=== PATIENT | female | born 1950 | race Caucasian/White ===

== ENCOUNTER 2016-03-15 09:21 | Emergency (ER) | payer OTHER ==
[~2016-03-15 09:21] MED LIST: ATEN25TA PO; CALCTAB66 PO; HYDR12.55 PO; IBUPPOW25 PO; NAPR500T2 PO; PREV30CA6 PO; [UNRECOGNIZED DRUG - CODE] TOP; [UNRECOGNIZED DRUG - OTHER] PO
[2016-03-15] MEDS ORDERED: ONDANSETRON 4 MG ORAL DISINTEGRATING TAB (S0181) As Ordered ONE (09:46)
[2016-03-15] MEDS ORDERED: MORPHINE 4 MG/ML 1ML SYRINGE As Ordered ONE (09:46)
--- NOTE | 2016-03-15 10:26 | REP ---
CT BRAIN WITHOUT CONTRAST: 03/15/2016 CLINICAL HISTORY: Trauma. No prior study. FINDINGS: Soft-tissue and bone windows show ventricles midline, symmetric and without dilatation or displacement. Basal ganglia is symmetric and normal. Andrade/white junction differentiation well maintained. Cortical stripe is preserved. There is no vascular territory infarct, hemorrhage, mass or mass effect. No extra-axial fluid collections. There is no atrophy. The brainstem was unremarkable. Cerebellum shows no atrophy. Basal cisterns are intact. Mastoids are well aerated. There is some minor mucosal thickening of bilateral ethmoids. That portion of sphenoid and frontal sinuses as well as the upper maxillary sinuses are clear. Skull base and calvarium show no fracture or focal lesion. IMPRESSION: 1. There is no hydrocephalous, small vessel white matter changes or mastoid abnormality. The sinuses show minor mucosal thickening of some of the ethmoids. 2. No fracture of the skull base or calvarium. 3. No intracranial hemorrhage, edema, mass, acute infarct or other finding. Signed by Jose Wiseman MD 03/15/2016 10:49 A
--- NOTE | 2016-03-15 10:45 | REP ---
Lumbar spine five views: Comparison is 04/08/2013. There is mild scoliosis convex left, possibly positional. There is grade 1 compression of the L1 vertebral body as a change from the prior study. The remainder of the vertebral body heights are normal. Vertebral interspacing alignment are normal. There is no spondylolysis or spondylolisthesis. 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 The facets are otherwise unremarkable. The pedicles and sacroiliac articulations are unremarkable. Impression: Grade 1 L1 vertebral body compression as an interval change. Otherwise, negative lumbar spine. Signed by Nacho Santos MD 03/15/2016 10:37 A
[2016-03-15] MEDS ORDERED: IBUPROFEN 600 MG TAB As Ordered ONE (11:27)
--- NOTE | 2016-03-15 12:14 | REP ---
CT LUMBAR SPINE WITHOUT CONTRAST: 03/15/2016 COMPARISON: X-ray 03/15/2016, 04/08/2013. CLINICAL HISTORY: L1 compression fracture. TECHNIQUE: Standard trauma protocol CT lumbar spine without contrast performed with coronal and sagittal reconstructions. FINDINGS: Sagittal images show grade 1 superior endplate compression of L1. The T12 vertebral body, lower half of T11 and then the L2 through S1 levels are all intact. Normal lumbar lordosis is maintained. The disc space height is maintained at all levels. Posterior elements show facet arthropathy at L5-S1, less at L4-5 and other levels but no spondylolysis or spondylolisthesis noted. Spinous processes and lamina intact. Transverse processes are intact. The lower thoracic ribs included are unremarkable. Small amount of paraspinal hematoma noted. This compression fracture is not present on the 04/08/2013 x-ray. The T11-12 level was intact. At T12-L1, there is no retropulsion of the superior endplate with the cross-sectional area of the canal ample. No spinal or foraminal stenosis. At L1-2, there is a mild broad-based disc bulge but no spinal or foraminal stenosis. At L2-3, there is minimal disc bulge without spinal or foraminal stenosis. At L3-4, there is minimal disc bulge without spinal or foraminal stenosis. At L4-5, there is some facet arthropathy and mild broad-based disc bulge with borderline central canal foramen adequate. At L5 -S1, minimal disc bulge abutting the S1 nerve roots. Cross-sectional area of the canal adequate. Foramina adequate. Sclerosis of the iliac and sacral margin of the SI joints on the left less on the right. IMPRESSION: 1. Superior endplate grade 1 compression of L1 appears to be acute, but without a retropulsed fragment. There is no central canal stenosis or foraminal encroachment at this level. 2. Disc bulges at multiple lower lumbar levels not causing any significant spinal or foraminal stenosis. 3. There is no other compression fracture and there is facet arthritis lower lumbar spine. Signed by Jose Wiseman MD 03/15/2016 04:43 P
--- NOTE | 2016-03-15 14:36 | EDDOCDS ---
Nurse's Notes [facility] Name: Anahi Benton Age: 65 yrs Sex: Female : 1950 Arrival Date: 03/15/2016 Time: 09:21 Bed 6 Private MD: Kristen Denson A Diagnosis: Fall (on) (from) unspecified stairs and steps-treadmill;Laceration without foreign body of scalp;Wedge compression fracture of first lumbar vertebra-Grade 1 Presentation: 03/15 09:25 Presenting complaint: EMS states: pt was walking on the treadmill this morning, while ead trying to remove extra layer of clothing fell off of treadmill landing on weight equipment. pt c/o lower back pain. abrasion to left arm. abrasion to back of head. Denies LOC. Adult Sepsis Screening: The patient does not have new or worsening altered mentation. Patient's respiratory rate is less than 22. Systolic blood pressure is greater than 100. Patient has a qSOFA score of 0- Negative Sepsis Screen. Suicide/Homicide risk assessment- the patient denies having any suicidal and/or homicidal ideations and does not present with any other emotional, behavioral or mental health complaints. Status: Patient is not a student support services director or dependent. Transition of care: patient was received from [facility] Physical [facility]. 09:25 Method Of Arrival: Ambulance ead 09:25 Acuity: GEOVANNY Level 4 ead Triage Assessment: 09:30 General: Appears in no apparent distress, well nourished, well groomed, Behavior is ead appropriate for age, cooperative. Pain: Location: left low back and right low back Pain currently is 8 out of 10 on a pain scale. HIV screening NA for this visit Offered previously. The patient is triaged at the bedside. See Assessment in Nurses Notes section of ED record. Neurological: Level of Consciousness is awake, alert, obeys commands, Oriented to person, place, time, Speech is normal, Facial symmetry appears normal, Denies dizziness, headache. Respiratory: Airway is patent Respiratory effort is even, unlabored. Derm: Skin is pink, warm & dry. abrasion to left arm. Musculoskeletal: Reports pain in left low back and right low back. Historical: - Allergies: no known allergies; - Home Meds: 1. omeprazole 20 mg Oral cpDR 1 cap once daily 2. hydrochlorothiazide 12.5 mg Oral tab 1 tab once daily 3. Calcium + Vitamin D Oral 600 mg twice a day - PMHx: GERD; Osteoporosis; Hypertension; Chronic Low Back Pain; - PSHx: Tonsillectomy; Cholecystectomy; Adenoidectomy; left foot - neuroma removal; - The history from nurses notes was reviewed: and elements of the historical information I have obtained differs from that reported to nursing. - Social history: No barriers to communication noted, The patient speaks fluent Iraqi, Speaks appropriately for age, Smoking status: Patient states was never smoker of tobacco. - : The pt / caregiver states he / she is not on anticoagulants. Home medication list is obtained from the patient. - Hospitalizations: : No recent hospitalization is reported. - Exposure Risk Screening:: None identified. - Immunization history:: All immunizations up-to-date. - Family history: Not pertinent. - Social history:: the patient is a non-smoker, the patient does not drink alcohol. Screenin:32 Screening information is obtained from the patient. Fall risk: No risks identified. ead Assistance ADL's: requires no assistance with activities of daily living. Abuse/DV Screen: The patient / caregiver reports he/she is: not in a situation that causes fear, pain or injury. Nutritional screening: No deficits noted. Advance Directives: Currently, there is a health care proxy, Orion Benton (). There is an active DNR order but there is no copy available at this time. There is no living will. There is an active Power of Forensic Computer Examiner, Orion Serenity (). home support is adequate. Assessment: 10:30 General: Appears in no apparent distress, comfortable, pt lying on stretcher, ead at bedside. . Respiratory: Airway is patent Respiratory effort is even, unlabored. Derm: Skin is pink, warm & dry. 11:15 General: pt reports no improvement of pain after morphine. requesting heat pad, pt ead provided with warm blanket to lower back. pt reports improvement with warm blankets. pt also requesting motrin for pain. provider made aware. . 11:31 General: Appears in no apparent distress, comfortable, Behavior is appropriate for age, ead cooperative. Pain: Location: right low back and left low back Pain currently is 6 out of 10 on a pain scale. Neurological: No deficits noted. Neurological: No deficits noted. Respiratory: Airway is patent Respiratory effort is even, unlabored. Musculoskeletal: Reports pain in right low back and left low back. 12:14 Adult Sepsis Screening: The patient does not have new or worsening altered mentation. ead Patient's respiratory rate is less than 22. Systolic blood pressure is greater than 100. Patient has a qSOFA score of 0- Negative Sepsis Screen. 13:13 General: Appears in no apparent distress, comfortable, Behavior is appropriate for age, ead cooperative. Neurological: Level of Consciousness is awake, alert, obeys commands, Oriented to person, place, time. Derm: Skin laceration to back of head. cleaned and left for inspection by Dr. Hartley. pt able to roll side to side in bed, reports improvement in lower back pain. Skin is pink, warm & dry. Musculoskeletal: Range of motion intact in all extremities. No deformity noted Swelling absent. 14:16 General: Appears in no apparent distress, comfortable, Behavior is appropriate for age, ead cooperative. Respiratory: Airway is patent Respiratory effort is even, unlabored. Derm: Skin is pink, warm & dry. Vital Signs: 09:44 BP 158 / 72; Pulse 65; Resp 18; Temp 98.0; Pulse Ox 99% on R/A; Weight 102.06 kg (R); nb2 Height 5 ft. 1 in. (154.94 cm) (R); Pain 8/10; 11:11 BP 105 / 53 (auto/); ead 11:13 Pulse 65; Resp 16; Pulse Ox 95% ; ead 12:07 Pulse 70; Pulse Ox 97% ; ead 12:08 BP 122 / 60 (auto/); ead 12:11 BP 118 / 57 (auto/); ead 12:12 Pulse Ox 96% ; ead 12:41 BP 116 / 56 (auto/); ead 12:45 Pulse 68; Resp 18; Pulse Ox 98% ; ead 13:06 Pulse Ox 96% ; ead 13:07 Resp 16; Pulse Ox 97% on R/A; ead 13:41 BP 153 / 73 (auto/); ead 14:11 BP 118 / 62 (auto/); ead 14:23 BP 118 / 62; Pulse 67; Resp 16; Temp 98.3; Pulse Ox 96% ; Pain 1/10; cmb 09:44 Body Mass Index 42.51 (102.06 kg, 154.94 cm) nb2 Vitals: 09:21 Log In Time N/A - ambulance arrival. ead ED Course: 09:23 Patient visited by Alla Kent, Church History Teacher. lbd 09:23 Kristen Denson is Private Physician. lbd 09:23 Martina Fox RN is Primary Nurse. lbd 09:23 Mercy RitterRN is Primary Nurse. lbd 09:23 Patient moved to Waiting lbd 09:23 Patient moved to 6 lbd 09:29 Triage Initiated ead 09:32 The patient / caregiver is instructed regarding the plan of care and ED course. Patient ead has correct armband on for positive identification. Placed in gown. Bed in low position. Call light in reach. Side rails up X2. Adult w/ patient. Pulse ox on. NIBP on. 09:35 Carlos Hartley MD is Attending Physician. pc 09:42 Patient visited by Carlos Hartley MD. pc 09:44 Patient visited by Audrey Mcguire. nb2 10:41 CT Head Without Contrast Returned. EDMS 10:43 Patient visited by Mercy Ritter RN. ead 11:16 Patient visited by Mercy Ritter RN. ead 11:30 Patient visited by Mercy Ritter RN. ead 11:33 [facility] Payment Agreement was scanned into [employer] and attached to record. mm15 11:33 Spine. Lumbosacral, Complete Returned. EDMS 12:14 Patient visited by Mercy Ritter RN. ead 12:27 CT Spine, Lumbar W/o Contrast Returned. EDMS 12:36 Primary Nurse role handed off by Martina Fox RN [facility] 13:13 Patient visited by Mercy Ritter RN. ead 14:15 Patient visited by Mercy Ritter RN. ead 14:17 Kristen Denson MD is Referral Physician. pc 14:18 Ronald Marmolejo is Referral Physician. pc 14:24 Patient visited by Tamela Porter. cmb 14:35 No IV's were initiated during this patient's visit. No procedures done that require ead assistance. Administered Medications: 09:51 Drug: morphine 4 mg [morphine 4 mg/mL intravenous cartridge (1 mL)] Route: Sub-Q; Site: mcp left upper arm; 10:45 Follow up: Response: Confirmed pt not driving.; No Adverse Reaction; Pain is unchanged, ead physician notified 09:51 Drug: Ondansetron ODT 4 mg [ondansetron 4 mg disintegrating tablet (1 tabs)] Route: PO; [facility] 10:45 Follow up: Response: Nausea is resolved; No Adverse Reaction ead 11:30 Drug: Ibuprofen 600 mg [ibuprofen 600 mg tablet (1 tabs)] Route: PO; ead Order Results: Radiology Order: CT Head Without Contrast Test: CT Head Without Contrast REASON FOR EXAMINATION: Trauma; CT BRAIN WITHOUT CONTRAST: 03/15/2016; ; CLINICAL HISTORY: Trauma.; ; No prior study.; ; FINDINGS: Soft-tissue and bone windows show ventricles midline, symmetric and; without dilatation or displacement. Basal ganglia is symmetric and normal.; Andrade/white junction differentiation well maintained. Cortical stripe is; preserved. There is no vascular territory infarct, hemorrhage, mass or mass; effect. No extra-axial fluid collections. There is no atrophy. The brainstem; was unremarkable. Cerebellum shows no atrophy. Basal cisterns are intact.; Mastoids are well aerated. There is some minor mucosal thickening of bilateral; ethmoids. That portion of sphenoid and frontal sinuses as well as the upper; maxillary sinuses are clear. Skull base and calvarium show no fracture or focal; lesion.; ; IMPRESSION:; ; 1. There is no hydrocephalous, small vessel white matter changes or mastoid; abnormality. The sinuses show minor mucosal thickening of some of the ethmoids.; ; 2. No fracture of the skull base or calvarium.; ; 3. No intracranial hemorrhage, edema, mass, acute infarct or other finding.; ; ; Signed by; Jose Wiseman MD 03/15/2016 10:49 A; Radiology Order: Spine. Lumbosacral, Complete Test: Spine. Lumbosacral, Complete REASON FOR EXAMINATION: Trauma; Lumbar spine five views:; ; Comparison is 04/08/2013.; ; There is mild scoliosis convex left, possibly positional.; ; There is grade 1 compression of the L1 vertebral body as a change from the prior; study. 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 The facets are otherwise; unremarkable.; ; The pedicles and sacroiliac articulations are unremarkable.; ; Impression: Grade 1 L1 vertebral body compression as an interval change.; ; Otherwise, negative lumbar spine.; ; ; Signed by; Nacho Santos MD 03/15/2016 10:37 A; Radiology Order: CT Spine, Lumbar W/o Contrast Test: CT Spine, Lumbar W/o Contrast REASON FOR EXAMINATION: L1 commpression fracture; CT LUMBAR SPINE WITHOUT CONTRAST: 03/15/2016; ; COMPARISON: X-ray 03/15/2016, 04/08/2013.; ; CLINICAL HISTORY: L1 compression fracture.; ; TECHNIQUE: Standard trauma protocol CT lumbar spine without contrast performed; with coronal and sagittal reconstructions.; ; FINDINGS: Sagittal images show grade 1 superior endplate compression of L1. The; T12 vertebral body, lower half of T11 and then the L2 through S1 levels are all; intact. Normal lumbar lordosis is maintained. The disc space height is; maintained at all levels. Posterior elements show facet arthropathy at L5-S1,; less at L4-5 and other levels but no spondylolysis or spondylolisthesis noted.; Spinous processes and lamina intact. Transverse processes are intact. The lower; thoracic ribs included are unremarkable. Small amount of paraspinal hematoma; noted. This compression fracture is not present on the 04/08/2013 x-ray. The; T11-12 level was intact. At T12-L1, there is no retropulsion of the superior; endplate with the cross-sectional area of the canal ample. No spinal or foraminal; stenosis.; ; At L1-2, there is a mild broad-based disc bulge but no spinal or foraminal; stenosis.; ; At L2-3, there is minimal disc bulge without spinal or foraminal stenosis.; ; At L3-4, there is minimal disc bulge without spinal or foraminal stenosis.; ; At L4-5, there is some facet arthropathy and mild broad-based disc bulge with; borderline central canal foramen adequate.; ; At L5 -S1, minimal disc bulge abutting the S1 nerve roots. Cross-sectional area; of the canal adequate. Foramina adequate. Sclerosis of the iliac and sacral; margin of the SI joints on the left less on the right.; ; IMPRESSION:; 1. Superior endplate grade 1 compression of L1 appears to be acute, but without; a retropulsed fragment. There is no central canal stenosis or foraminal; encroachment at this level.; ; 2. Disc bulges at multiple lower lumbar levels not causing any significant; spinal or foraminal stenosis.; ; 3. There is no other compression fracture and there is facet arthritis lower; lumbar spine.; ; ; ; ; ; ; ; ; Unreviewed; Outcome: 14:18 Discharge ordered by Provider. pc 14:34 Discharge Assessment: Patient awake and alert. obeys commands, Oriented to person, ead place and time. patient administered narcotics - yes. Pt provided with safe discharge. The following High Risk Discharge criteria are identified: None. Discharged to home ambulatory, with significant other. Condition: improved. Discharge instructions given to patient, significant other, Instructed on discharge instructions, follow up and referral plans. medication usage, no driving heavy equipment, no drinking with medication, Demonstrated understanding of instructions, medications, Pt was receptive of discharge instructions/ teaching. Prescriptions given X 2. CT Study completed. Property sent home with patient. 14:35 Patient left the ED. ead Signatures: Dispatcher [employer] EDMS Carlos Hartley MD MD pc Daly, Linda, Church History Teacher Unit lbd Anabelle Vasques RN RN mcp [place], Chelsea cmb McGrath, Marlynn [id number] Mercy Ritter RN RN ead Baart, Nicole nb2 MTDD
--- NOTE | 2016-03-15 14:36 | EDDOCDS ---
Physician Documentation [facility] Name: Anahi Benton Age: 65 yrs Sex: Female : 1950 Arrival Date: 03/15/2016 Time: 09:21 Bed 6 Private MD: Kristen Denson A Disposition: 03/15 14:16 Critical Care: Critical care not applicable. pc 14:21 A printed prescription was provided to the patient due to temporary technical issues pc which prevented electronic transmission. Disposition: 03/15/16 14:18 Discharged to Home/Self Care. Impression: Fall (on) (from) unspecified stairs and steps - treadmill, Laceration without foreign body of scalp, Wedge compression fracture of first lumbar vertebra - Grade 1. - Condition is Stable. - Discharge Instructions: Back, Compression Fracture, Laceration Care, Adult. - Prescriptions for Ibuprofen 800 mg Oral Tablet - take 1 tablet by ORAL route every 8 hours As needed take with food; 30 tablet. Tramadol 50 mg Oral Tablet - take 1 tablet by ORAL route 4 times per day As needed MDD: 4 tabs; 20 tablet. - Medication Reconciliation, Local Pharmacy Hours form. - Follow up: Kristen Denson MD; When: 1 week; Reason: Staple/Suture removal. Follow up: Ronald Marmolejo; When: Call to arrange an appointment; Reason: Recheck today's complaints, To establish care. - Problem is new. - Symptoms have improved. HPI: 10:05 This 65 yrs old Female presents to ER via Ambulance with complaints of Fall pc Injury. 10:05 The history is obtained from the patient. She attempted to take her sweatshirt off pc while walking on the treadmill and was propelled off the machine, falling backwards. She struck her head on a piece of equipment, sustaining a laceration to her occiput. She did not have any LOC, neck pain or UE neurological symptoms. She says she arched her back while falling and complains of increased pain over her usual chronic low back pain. She denies any numbness or tingling or weakness in her LEs. No other injuries. At their worst, the symptoms were a 8 out of 10. In the emergency department, the symptoms are unchanged. The patient has been recently seen by a paint spray tender. Historical: - Allergies: no known allergies; - Home Meds: 1. omeprazole 20 mg Oral cpDR 1 cap once daily 2. hydrochlorothiazide 12.5 mg Oral tab 1 tab once daily 3. Calcium + Vitamin D Oral 600 mg twice a day - PMHx: GERD; Osteoporosis; Hypertension; Chronic Low Back Pain; - PSHx: Tonsillectomy; Cholecystectomy; Adenoidectomy; left foot - neuroma removal; - The history from nurses notes was reviewed: and elements of the historical information I have obtained differs from that reported to nursing. - Social history: No barriers to communication noted, The patient speaks fluent Nigerien, Speaks appropriately for age, Smoking status: Patient states was never smoker of tobacco. - : The pt / caregiver states he / she is not on anticoagulants. Home medication list is obtained from the patient. - Hospitalizations: : No recent hospitalization is reported. - Exposure Risk Screening:: None identified. - Immunization history:: All immunizations up-to-date. - Family history: Not pertinent. - Social history:: the patient is a non-smoker, the patient does not drink alcohol. ROS: 10:08 All systems are negative except as listed. pc Exam: 10:08 General Appearance: alert, the patient is in mild distress. pc 10:08 EENT: normal eye inspection, ears, nose and throat normal, pharynx normal, mucous membranes moist laceration on occiput. 10:08 Neck: The exam reveals no acute abnormalities. ROM is normal and painless. No nuchal rigidity is noted.. 10:08 Respiratory: no respiratory distress, normal breath sounds, chest non-tender. 10:08 CVS: regular pulse rate, regular rhythm, normal S1 and S2, no murmurs, strong peripheral pulses, normal capillary refill. 10:08 Abdomen: soft, non-tender, no organomegaly, normal bowel sounds. 10:08 Back: Pain is noted in the lumbar area. 10:08 Skin: skin color is normal, warm, dry. 10:08 Extremities: The extremities have a grossly normal appearance, are non-tender, without acute ROM abnormalities. 10:08 Neuro: oriented x 3, cranial nerves normal as tested, no motor deficits, no sensory deficits. Vital Signs: 09:44 BP 158 / 72; Pulse 65; Resp 18; Temp 98.0; Pulse Ox 99% on R/A; Weight 102.06 kg / 225 nb2 lbs (R); Height 5 ft. 1 in. (154.94 cm) (R); Pain 8/10; 11:11 BP 105 / 53 (auto/); ead 11:13 Pulse 65; Resp 16; Pulse Ox 95% ; ead 12:07 Pulse 70; Pulse Ox 97% ; ead 12:08 BP 122 / 60 (auto/); ead 12:11 BP 118 / 57 (auto/); ead 12:12 Pulse Ox 96% ; ead 12:41 BP 116 / 56 (auto/); ead 12:45 Pulse 68; Resp 18; Pulse Ox 98% ; ead 13:06 Pulse Ox 96% ; ead 13:07 Resp 16; Pulse Ox 97% on R/A; ead 13:41 BP 153 / 73 (auto/); ead 14:11 BP 118 / 62 (auto/); ead 14:23 BP 118 / 62; Pulse 67; Resp 16; Temp 98.3; Pulse Ox 96% ; Pain 1/10; cmb 09:44 Body Mass Index 42.51 (102.06 kg, 154.94 cm) nb2 Procedures: 13:52 Laceration repair:. pc Laceration: 13:52 Wound Repair of 5cm ( 2.0in ) full thickness laceration to occipital area. Linear pc shaped.. Hemostasis noted.. Distal neuro/vascular/tendon intact. Anesthesia: None with None. Wound prep: Simple cleansing with hibiclenz by provider, Wound irrigation with saline by provider. Skin closed with 6 thin layer [place] using Staple gun. Patient tolerated well. MDM: 09:43 morphine 4 mg Sub-Q once ordered. pc 09:43 Ondansetron ODT Oral Disintegrating Tablet 4 mg PO once ordered. pc 09:45 CT Head Without Contrast Ordered. EDMS 09:45 Spine. Lumbosacral, Complete Ordered. EDMS 10:08 Differential Diagnosis: fall; scalp laceration;; back contusion; chronic back pain. pc Plan: meds, imaging, wound repair. 10:42 Financial registration complete. mm15 11:23 Ibuprofen 600 mg PO once ordered. pc 11:24 CT Spine, Lumbar W/o Contrast Ordered. EDMS 11:33 [facility] [place] Agreement was scanned into [employer] and attached to record. mm15 13:53 Data reviewed: old medical records, vital signs, nurses notes, all radiology studies pc and available results. Test interpretation: X-RAY - interpreted by Radiologist and personally reviewed, LS-Spine ?new L1 compression fracture interpreted by Radiologist and personally reviewed, Head CT; no acute disease, L-Spine CT; new L1 compression fracture, else nad. The patient has been re-examined and re-evaluated. The patient's symptoms have markedly improved after treatment. ED course: She states she never gets any pain relief from opioids and requests only ibuprofen be used. 14:16 Physician consultation: Dr. Ronald Marmolejo was contacted at 14:16, regarding patient's pc condition, and advises the medications/treatment as provided. and agrees with the treatment provided and advises the discharge plans as outlined. Disposition: The historical points, examination findings, and any diagnostic results supporting the provided diagnosis, were discussed with the patient or legal guardian. The need for outpatient follow up with the provider listed on their discharge instructions was discussed. They were encouraged to return to [facility], or the nearest ED, if symptoms worsen/persist, or for any other questions/concerns. Administered Medications: 09:51 Drug: morphine 4 mg [morphine 4 mg/mL intravenous cartridge (1 mL)] Route: Sub-Q; Site: mcp left upper arm; 10:45 Follow up: Response: Confirmed pt not driving.; No Adverse Reaction; Pain is unchanged, ead physician notified 09:51 Drug: Ondansetron ODT 4 mg [ondansetron 4 mg disintegrating tablet (1 tabs)] Route: PO; [facility] 10:45 Follow up: Response: Nausea is resolved; No Adverse Reaction ead 11:30 Drug: Ibuprofen 600 mg [ibuprofen 600 mg tablet (1 tabs)] Route: PO; ead Signatures: Dispatcher [employer] EDWY Carlos Hartley MD MD pc McGrath, Marlynn mm15 Mercy Ritter RN RN ead Peters, Mary RN [facility] The chart was reviewed and I authenticate all verbal orders and agree with the evaluation and treatment provided.Attachments: 11:33 [facility] Payment Agreement mm15 MTDD
--- NOTE | 2016-03-17 15:36 | EDDOCDS ---
Physician Documentation [facility] Name: Aanhi Benton Age: 65 yrs Sex: Female : 1950 Arrival Date: 03/15/2016 Time: 09:21 Bed 6 Private MD: Kristen Denson A Disposition: 03/15 14:16 Critical Care: Critical care not applicable. pc 14:21 A printed prescription was provided to the patient due to temporary technical issues pc which prevented electronic transmission. Disposition: 03/15/16 14:18 Discharged to Home/Self Care. Impression: Fall (on) (from) unspecified stairs and steps - treadmill, Laceration without foreign body of scalp, Wedge compression fracture of first lumbar vertebra - Grade 1. - Condition is Stable. - Discharge Instructions: Back, Compression Fracture, Laceration Care, Adult. - Prescriptions for Ibuprofen 800 mg Oral Tablet - take 1 tablet by ORAL route every 8 hours As needed take with food; 30 tablet. Tramadol 50 mg Oral Tablet - take 1 tablet by ORAL route 4 times per day As needed MDD: 4 tabs; 20 tablet. - Medication Reconciliation, Local Pharmacy Hours form. - Follow up: Kristen Denson MD; When: 1 week; Reason: Staple/Suture removal. Follow up: Ronald Marmolejo; When: Call to arrange an appointment; Reason: Recheck today's complaints, To establish care. - Problem is new. - Symptoms have improved. HPI: 10:05 This 65 yrs old Female presents to ER via Ambulance with complaints of Fall pc Injury. 10:05 The history is obtained from the patient. She attempted to take her sweatshirt off pc while walking on the treadmill and was propelled off the machine, falling backwards. She struck her head on a piece of equipment, sustaining a laceration to her occiput. She did not have any LOC, neck pain or UE neurological symptoms. She says she arched her back while falling and complains of increased pain over her usual chronic low back pain. She denies any numbness or tingling or weakness in her LEs. No other injuries. At their worst, the symptoms were a 8 out of 10. In the emergency department, the symptoms are unchanged. The patient has been recently seen by a buildings painter. Historical: - Allergies: no known allergies; - Home Meds: 1. omeprazole 20 mg Oral cpDR 1 cap once daily 2. hydrochlorothiazide 12.5 mg Oral tab 1 tab once daily 3. Calcium + Vitamin D Oral 600 mg twice a day - PMHx: GERD; Osteoporosis; Hypertension; Chronic Low Back Pain; - PSHx: Tonsillectomy; Cholecystectomy; Adenoidectomy; left foot - neuroma removal; - The history from nurses notes was reviewed: and elements of the historical information I have obtained differs from that reported to nursing. - Social history: No barriers to communication noted, The patient speaks fluent [place]ym[place], Speaks appropriately for age, Smoking status: Patient states was never smoker of tobacco. - : The pt / caregiver states he / she is not on anticoagulants. Home medication list is obtained from the patient. - Hospitalizations: : No recent hospitalization is reported. - Exposure Risk Screening:: None identified. - Immunization history:: All immunizations up-to-date. - Family history: Not pertinent. - Social history:: the patient is a non-smoker, the patient does not drink alcohol. ROS: 10:08 All systems are negative except as listed. pc Exam: 10:08 General Appearance: alert, the patient is in mild distress. pc 10:08 EENT: normal eye inspection, ears, nose and throat normal, pharynx normal, mucous membranes moist laceration on occiput. 10:08 Neck: The exam reveals no acute abnormalities. ROM is normal and painless. No nuchal rigidity is noted.. 10:08 Respiratory: no respiratory distress, normal breath sounds, chest non-tender. 10:08 CVS: regular pulse rate, regular rhythm, normal S1 and S2, no murmurs, strong peripheral pulses, normal capillary refill. 10:08 Abdomen: soft, non-tender, no organomegaly, normal bowel sounds. 10:08 Back: Pain is noted in the lumbar area. 10:08 Skin: skin color is normal, warm, dry. 10:08 Extremities: The extremities have a grossly normal appearance, are non-tender, without acute ROM abnormalities. 10:08 Neuro: oriented x 3, cranial nerves normal as tested, no motor deficits, no sensory deficits. Vital Signs: 09:44 BP 158 / 72; Pulse 65; Resp 18; Temp 98.0; Pulse Ox 99% on R/A; Weight 102.06 kg / 225 nb2 lbs (R); Height 5 ft. 1 in. (154.94 cm) (R); Pain 8/10; 11:11 BP 105 / 53 (auto/); ead 11:13 Pulse 65; Resp 16; Pulse Ox 95% ; ead 12:07 Pulse 70; Pulse Ox 97% ; ead 12:08 BP 122 / 60 (auto/); ead 12:11 BP 118 / 57 (auto/); ead 12:12 Pulse Ox 96% ; ead 12:41 BP 116 / 56 (auto/); ead 12:45 Pulse 68; Resp 18; Pulse Ox 98% ; ead 13:06 Pulse Ox 96% ; ead 13:07 Resp 16; Pulse Ox 97% on R/A; ead 13:41 BP 153 / 73 (auto/); ead 14:11 BP 118 / 62 (auto/); ead 14:23 BP 118 / 62; Pulse 67; Resp 16; Temp 98.3; Pulse Ox 96% ; Pain 1/10; cmb 09:44 Body Mass Index 42.51 (102.06 kg, 154.94 cm) nb2 Procedures: 13:52 Laceration repair:. pc Laceration: 13:52 Wound Repair of 5cm ( 2.0in ) full thickness laceration to occipital area. Linear pc shaped.. Hemostasis noted.. Distal neuro/vascular/tendon intact. Anesthesia: None with None. Wound prep: Simple cleansing with hibiclenz by provider, Wound irrigation with saline by provider. Skin closed with 6 thin layer [place] using Staple gun. Patient tolerated well. MDM: 09:43 morphine 4 mg Sub-Q once ordered. pc 09:43 Ondansetron ODT Oral Disintegrating Tablet 4 mg PO once ordered. pc 09:45 CT Head Without Contrast Ordered. EDMS 09:45 Spine. Lumbosacral, Complete Ordered. EDMS 10:08 Differential Diagnosis: fall; scalp laceration;; back contusion; chronic back pain. pc Plan: meds, imaging, wound repair. 10:42 Financial registration complete. mm15 11:23 Ibuprofen 600 mg PO once ordered. pc 11:24 CT Spine, Lumbar W/o Contrast Ordered. EDMS 11:33 [facility] [place] was scanned into [employer] and attached to record. mm15 13:53 Data reviewed: old medical records, vital signs, nurses notes, all radiology studies pc and available results. Test interpretation: X-RAY - interpreted by Radiologist and personally reviewed, LS-Spine ?new L1 compression fracture interpreted by Radiologist and personally reviewed, Head CT; no acute disease, L-Spine CT; new L1 compression fracture, else nad. The patient has been re-examined and re-evaluated. The patient's symptoms have markedly improved after treatment. ED course: She states she never gets any pain relief from opioids and requests only ibuprofen be used. 14:16 Physician consultation: Dr. Ronald Marmolejo was contacted at 14:16, regarding patient's pc condition, and advises the medications/treatment as provided. and agrees with the treatment provided and advises the discharge plans as outlined. Disposition: The historical points, examination findings, and any diagnostic results supporting the provided diagnosis, were discussed with the patient or legal guardian. The need for outpatient follow up with the provider listed on their discharge instructions was discussed. They were encouraged to return to [facility], or the nearest ED, if symptoms worsen/persist, or for any other questions/concerns. 03/16 15:44 PCR was scanned into [employer] and attached to record. gb Administered Medications: 03/15 09:51 Drug: morphine 4 mg [morphine 4 mg/mL intravenous cartridge (1 mL)] Route: Sub-Q; Site: mcp left upper arm; 10:45 Follow up: Response: Confirmed pt not driving.; No Adverse Reaction; Pain is unchanged, ead physician notified 09:51 Drug: Ondansetron ODT 4 mg [ondansetron 4 mg disintegrating tablet (1 tabs)] Route: PO; [facility] 10:45 Follow up: Response: Nausea is resolved; No Adverse Reaction ead 11:30 Drug: Ibuprofen 600 mg [ibuprofen 600 mg tablet (1 tabs)] Route: PO; ead Signatures: Dispatcher [employer] EDMS Carlos Hartley MD MD pc Barnhardt, Gloria, Angel Guadalupe mm15 Mercy Ritter RN RN ead Peters, Mary RN [facility] The chart was reviewed and I authenticate all verbal orders and agree with the evaluation and treatment provided.Attachments: 11:33 [facility] Payment Agreement mm15 Chart Complete MTDD
--- NOTE | 2016-03-17 15:36 | EDDOCDS ---
Nurse's Notes [facility] Name: Anahi Benton Age: 65 yrs Sex: Female : 1950 Arrival Date: 03/15/2016 Time: 09:21 Bed 6 Private MD: Kristen Denson A Diagnosis: Fall (on) (from) unspecified stairs and steps-treadmill;Laceration without foreign body of scalp;Wedge compression fracture of first lumbar vertebra-Grade 1 Presentation: 03/15 09:25 Presenting complaint: EMS states: pt was walking on the treadmill this morning, while ead trying to remove extra layer of clothing fell off of treadmill landing on weight equipment. pt c/o lower back pain. abrasion to left arm. abrasion to back of head. Denies LOC. Adult Sepsis Screening: The patient does not have new or worsening altered mentation. Patient's respiratory rate is less than 22. Systolic blood pressure is greater than 100. Patient has a qSOFA score of 0- Negative Sepsis Screen. Suicide/Homicide risk assessment- the patient denies having any suicidal and/or homicidal ideations and does not present with any other emotional, behavioral or mental health complaints. Status: Patient is not a agency service coordinator or dependent. Transition of care: patient was received from [facility]. 09:25 Method Of Arrival: Ambulance ead 09:25 Acuity: GEOVANNY Level 4 ead Triage Assessment: 09:30 General: Appears in no apparent distress, well nourished, well groomed, Behavior is ead appropriate for age, cooperative. Pain: Location: left low back and right low back Pain currently is 8 out of 10 on a pain scale. HIV screening NA for this visit Offered previously. The patient is triaged at the bedside. See Assessment in Nurses Notes section of ED record. Neurological: Level of Consciousness is awake, alert, obeys commands, Oriented to person, place, time, Speech is normal, Facial symmetry appears normal, Denies dizziness, headache. Respiratory: Airway is patent Respiratory effort is even, unlabored. Derm: Skin is pink, warm & dry. abrasion to left arm. Musculoskeletal: Reports pain in left low back and right low back. Historical: - Allergies: no known allergies; - Home Meds: 1. omeprazole 20 mg Oral cpDR 1 cap once daily 2. hydrochlorothiazide 12.5 mg Oral tab 1 tab once daily 3. Calcium + Vitamin D Oral 600 mg twice a day - PMHx: GERD; Osteoporosis; Hypertension; Chronic Low Back Pain; - PSHx: Tonsillectomy; Cholecystectomy; Adenoidectomy; left foot - neuroma removal; - The history from nurses notes was reviewed: and elements of the historical information I have obtained differs from that reported to nursing. - Social history: No barriers to communication noted, The patient speaks fluent Gabonese, Speaks appropriately for age, Smoking status: Patient states was never smoker of tobacco. - : The pt / caregiver states he / she is not on anticoagulants. Home medication list is obtained from the patient. - Hospitalizations: : No recent hospitalization is reported. - Exposure Risk Screening:: None identified. - Immunization history:: All immunizations up-to-date. - Family history: Not pertinent. - Social history:: the patient is a non-smoker, the patient does not drink alcohol. Screenin:32 Screening information is obtained from the patient. Fall risk: No risks identified. ead Assistance ADL's: requires no assistance with activities of daily living. Abuse/DV Screen: The patient / caregiver reports he/she is: not in a situation that causes fear, pain or injury. Nutritional screening: No deficits noted. Advance Directives: Currently, there is a health care proxy, Orion Benton (). There is an active DNR order but there is no copy available at this time. There is no living will. There is an active Power of Program Rep, Orion Serenity (). home support is adequate. Assessment: 10:30 General: Appears in no apparent distress, comfortable, pt lying on stretcher, ead at bedside. . Respiratory: Airway is patent Respiratory effort is even, unlabored. Derm: Skin is pink, warm & dry. 11:15 General: pt reports no improvement of pain after morphine. requesting heat pad, pt ead provided with warm blanket to lower back. pt reports improvement with warm blankets. pt also requesting motrin for pain. provider made aware. . 11:31 General: Appears in no apparent distress, comfortable, Behavior is appropriate for age, ead cooperative. Pain: Location: right low back and left low back Pain currently is 6 out of 10 on a pain scale. Neurological: No deficits noted. Neurological: No deficits noted. Respiratory: Airway is patent Respiratory effort is even, unlabored. Musculoskeletal: Reports pain in right low back and left low back. 12:14 Adult Sepsis Screening: The patient does not have new or worsening altered mentation. ead Patient's respiratory rate is less than 22. Systolic blood pressure is greater than 100. Patient has a qSOFA score of 0- Negative Sepsis Screen. 13:13 General: Appears in no apparent distress, comfortable, Behavior is appropriate for age, ead cooperative. Neurological: Level of Consciousness is awake, alert, obeys commands, Oriented to person, place, time. Derm: Skin laceration to back of head. cleaned and left for inspection by Dr. Hartley. pt able to roll side to side in bed, reports improvement in lower back pain. Skin is pink, warm & dry. Musculoskeletal: Range of motion intact in all extremities. No deformity noted Swelling absent. 14:16 General: Appears in no apparent distress, comfortable, Behavior is appropriate for age, ead cooperative. Respiratory: Airway is patent Respiratory effort is even, unlabored. Derm: Skin is pink, warm & dry. Vital Signs: 09:44 BP 158 / 72; Pulse 65; Resp 18; Temp 98.0; Pulse Ox 99% on R/A; Weight 102.06 kg (R); nb2 Height 5 ft. 1 in. (154.94 cm) (R); Pain 8/10; 11:11 BP 105 / 53 (auto/); ead 11:13 Pulse 65; Resp 16; Pulse Ox 95% ; ead 12:07 Pulse 70; Pulse Ox 97% ; ead 12:08 BP 122 / 60 (auto/); ead 12:11 BP 118 / 57 (auto/); ead 12:12 Pulse Ox 96% ; ead 12:41 BP 116 / 56 (auto/); ead 12:45 Pulse 68; Resp 18; Pulse Ox 98% ; ead 13:06 Pulse Ox 96% ; ead 13:07 Resp 16; Pulse Ox 97% on R/A; ead 13:41 BP 153 / 73 (auto/); ead 14:11 BP 118 / 62 (auto/); ead 14:23 BP 118 / 62; Pulse 67; Resp 16; Temp 98.3; Pulse Ox 96% ; Pain 1/10; cmb 09:44 Body Mass Index 42.51 (102.06 kg, 154.94 cm) nb2 Vitals: 09:21 Log In Time N/A - ambulance arrival. ead ED Course: 09:23 Patient visited by Alla Kent, Home Health Attendant. lbd 09:23 Kristen Denson is Private Physician. lbd 09:23 Martina Fox,RN is Primary Nurse. lbd 09:23 Mercy Ritter,RN is Primary Nurse. lbd 09:23 Patient moved to Waiting lbd 09:23 Patient moved to 6 lbd 09:29 Triage Initiated ead 09:32 The patient / caregiver is instructed regarding the plan of care and ED course. Patient ead has correct armband on for positive identification. Placed in gown. Bed in low position. Call light in reach. Side rails up X2. Adult w/ patient. Pulse ox on. NIBP on. 09:35 Carlos Hartley MD is Attending Physician. pc 09:42 Patient visited by Carlos Hartley MD. pc 09:44 Patient visited by Audrey Mcguire. nb2 10:41 CT Head Without Contrast Returned. EDMS 10:43 Patient visited by Mercy Ritter,MARILEE. ead 11:16 Patient visited by Mercy Ritter,MARILEE. ead 11:30 Patient visited by Mercy Ritter RN. ead 11:33 [facility] Payment Agreement was scanned into [employer] and attached to record. mm15 11:33 Spine. Lumbosacral, Complete Returned. EDMS 12:14 Patient visited by Mercy Ritter,MARILEE. ead 12:27 CT Spine, Lumbar W/o Contrast Returned. EDMS 12:36 Primary Nurse role handed off by Martina Fox RN mcp 13:13 Patient visited by Mercy Ritter,MARILEE. ead 14:15 Patient visited by Mercy Ritter,MARILEE. ead 14:17 Kristen Denson MD is Referral Physician. pc 14:18 Ronald Marmolejo is Referral Physician. pc 14:24 Patient visited by Tamela Porter. cmb 14:35 No IV's were initiated during this patient's visit. No procedures done that require ead assistance. 03/16 15:44 PCR was scanned into [employer] and attached to record. gb Administered Medications: 03/15 09:51 Drug: morphine 4 mg [morphine 4 mg/mL intravenous cartridge (1 mL)] Route: Sub-Q; Site: mcp left upper arm; 10:45 Follow up: Response: Confirmed pt not driving.; No Adverse Reaction; Pain is unchanged, ead physician notified 09:51 Drug: Ondansetron ODT 4 mg [ondansetron 4 mg disintegrating tablet (1 tabs)] Route: PO; [facility] 10:45 Follow up: Response: Nausea is resolved; No Adverse Reaction ead 11:30 Drug: Ibuprofen 600 mg [ibuprofen 600 mg tablet (1 tabs)] Route: PO; ead Order Results: Radiology Order: CT Head Without Contrast Test: CT Head Without Contrast REASON FOR EXAMINATION: Trauma; CT BRAIN WITHOUT CONTRAST: 03/15/2016; ; CLINICAL HISTORY: Trauma.; ; No prior study.; ; FINDINGS: Soft-tissue and bone windows show ventricles midline, symmetric and; without dilatation or displacement. Basal ganglia is symmetric and normal.; Andrade/white junction differentiation well maintained. Cortical stripe is; preserved. There is no vascular territory infarct, hemorrhage, mass or mass; effect. No extra-axial fluid collections. There is no atrophy. The brainstem; was unremarkable. Cerebellum shows no atrophy. Basal cisterns are intact.; Mastoids are well aerated. There is some minor mucosal thickening of bilateral; ethmoids. That portion of sphenoid and frontal sinuses as well as the upper; maxillary sinuses are clear. Skull base and calvarium show no fracture or focal; lesion.; ; IMPRESSION:; ; 1. There is no hydrocephalous, small vessel white matter changes or mastoid; abnormality. The sinuses show minor mucosal thickening of some of the ethmoids.; ; 2. No fracture of the skull base or calvarium.; ; 3. No intracranial hemorrhage, edema, mass, acute infarct or other finding.; ; ; Signed by; Jose Wiseman MD 03/15/2016 10:49 A; Radiology Order: Spine. Lumbosacral, Complete Test: Spine. Lumbosacral, Complete REASON FOR EXAMINATION: Trauma; Lumbar spine five views:; ; Comparison is 04/08/2013.; ; There is mild scoliosis convex left, possibly positional.; ; There is grade 1 compression of the L1 vertebral body as a change from the prior; study. 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 The facets are otherwise; unremarkable.; ; The pedicles and sacroiliac articulations are unremarkable.; ; Impression: Grade 1 L1 vertebral body compression as an interval change.; ; Otherwise, negative lumbar spine.; ; ; Signed by; Ncaho Santos MD 03/15/2016 10:37 A; Radiology Order: CT Spine, Lumbar W/o Contrast Test: CT Spine, Lumbar W/o Contrast REASON FOR EXAMINATION: L1 commpression fracture; CT LUMBAR SPINE WITHOUT CONTRAST: 03/15/2016; ; COMPARISON: X-ray 03/15/2016, 04/08/2013.; ; CLINICAL HISTORY: L1 compression fracture.; ; TECHNIQUE: Standard trauma protocol CT lumbar spine without contrast performed; with coronal and sagittal reconstructions.; ; FINDINGS: Sagittal images show grade 1 superior endplate compression of L1. The; T12 vertebral body, lower half of T11 and then the L2 through S1 levels are all; intact. Normal lumbar lordosis is maintained. The disc space height is; maintained at all levels. Posterior elements show facet arthropathy at L5-S1,; less at L4-5 and other levels but no spondylolysis or spondylolisthesis noted.; Spinous processes and lamina intact. Transverse processes are intact. The lower; thoracic ribs included are unremarkable. Small amount of paraspinal hematoma; noted. This compression fracture is not present on the 04/08/2013 x-ray. The; T11-12 level was intact. At T12-L1, there is no retropulsion of the superior; endplate with the cross-sectional area of the canal ample. No spinal or foraminal; stenosis.; ; At L1-2, there is a mild broad-based disc bulge but no spinal or foraminal; stenosis.; ; At L2-3, there is minimal disc bulge without spinal or foraminal stenosis.; ; At L3-4, there is minimal disc bulge without spinal or foraminal stenosis.; ; At L4-5, there is some facet arthropathy and mild broad-based disc bulge with; borderline central canal foramen adequate.; ; At L5 -S1, minimal disc bulge abutting the S1 nerve roots. Cross-sectional area; of the canal adequate. Foramina adequate. Sclerosis of the iliac and sacral; margin of the SI joints on the left less on the right.; ; IMPRESSION:; ; 1. Superior endplate grade 1 compression of L1 appears to be acute, but without; a retropulsed fragment. There is no central canal stenosis or foraminal; encroachment at this level.; ; 2. Disc bulges at multiple lower lumbar levels not causing any significant; spinal or foraminal stenosis.; ; 3. There is no other compression fracture and there is facet arthritis lower; lumbar spine.; ; ; ; ; ; ; Signed by; Jose Wiseman MD 03/15/2016 04:43 P; Outcome: 14:18 Discharge ordered by Provider. pc 14:34 Discharge Assessment: Patient awake and alert. obeys commands, Oriented to person, ead place and time. patient administered narcotics - yes. Pt provided with safe discharge. The following High Risk Discharge criteria are identified: None. Discharged to home ambulatory, with significant other. Condition: improved. Discharge instructions given to patient, significant other, Instructed on discharge instructions, follow up and referral plans. medication usage, no driving heavy equipment, no drinking with medication, Demonstrated understanding of instructions, medications, Pt was receptive of discharge instructions/ teaching. Prescriptions given X 2. CT Study completed. Property sent home with patient. 14:35 Patient left the ED. ead Signatures: Dispatcher [employer] EDMS Carlos Hartley MD MD pc Daly, Linda, Home Health Attendant Unit lbd Anabelle Vasques RN RN mcp Barnhardt, Gloria, Nura Reg Tamela Nair cmb Angel Mayfield mm15 Mercy Ritter RN RN ead Baart, Nicole nb2 Chart Complete MTDD
--- NOTE | 2016-03-17 15:36 | EDDOCDS ---
Physician Documentation [facility] Name: Anahi Benton Age: 65 yrs Sex: Female : 1950 Arrival Date: 03/15/2016 Time: 09:21 Bed 6 Private MD: Kristen Denson A Disposition: 03/15 14:16 Critical Care: Critical care not applicable. pc 14:21 A printed prescription was provided to the patient due to temporary technical issues pc which prevented electronic transmission. Disposition: 03/15/16 14:18 Discharged to Home/Self Care. Impression: Fall (on) (from) unspecified stairs and steps - treadmill, Laceration without foreign body of scalp, Wedge compression fracture of first lumbar vertebra - Grade 1. - Condition is Stable. - Discharge Instructions: Back, Compression Fracture, Laceration Care, Adult. - Prescriptions for Ibuprofen 800 mg Oral Tablet - take 1 tablet by ORAL route every 8 hours As needed take with food; 30 tablet. Tramadol 50 mg Oral Tablet - take 1 tablet by ORAL route 4 times per day As needed MDD: 4 tabs; 20 tablet. - Medication Reconciliation, Local Pharmacy Hours form. - Follow up: Kristen Denson MD; When: 1 week; Reason: Staple/Suture removal. Follow up: Ronald Marmolejo; When: Call to arrange an appointment; Reason: Recheck today's complaints, To establish care. - Problem is new. - Symptoms have improved. HPI: 10:05 This 65 yrs old Female presents to ER via Ambulance with complaints of Fall pc Injury. 10:05 The history is obtained from the patient. She attempted to take her sweatshirt off pc while walking on the treadmill and was propelled off the machine, falling backwards. She struck her head on a piece of equipment, sustaining a laceration to her occiput. She did not have any LOC, neck pain or UE neurological symptoms. She says she arched her back while falling and complains of increased pain over her usual chronic low back pain. She denies any numbness or tingling or weakness in her LEs. No other injuries. At their worst, the symptoms were a 8 out of 10. In the emergency department, the symptoms are unchanged. The patient has been recently seen by a painting machine operator. Historical: - Allergies: no known allergies; - Home Meds: 1. omeprazole 20 mg Oral cpDR 1 cap once daily 2. hydrochlorothiazide 12.5 mg Oral tab 1 tab once daily 3. Calcium + Vitamin D Oral 600 mg twice a day - PMHx: GERD; Osteoporosis; Hypertension; Chronic Low Back Pain; - PSHx: Tonsillectomy; Cholecystectomy; Adenoidectomy; left foot - neuroma removal; - The history from nurses notes was reviewed: and elements of the historical information I have obtained differs from that reported to nursing. - Social history: No barriers to communication noted, The patient speaks fluent Togolese, Speaks appropriately for age, Smoking status: Patient states was never smoker of tobacco. - : The pt / caregiver states he / she is not on anticoagulants. Home medication list is obtained from the patient. - Hospitalizations: : No recent hospitalization is reported. - Exposure Risk Screening:: None identified. - Immunization history:: All immunizations up-to-date. - Family history: Not pertinent. - Social history:: the patient is a non-smoker, the patient does not drink alcohol. ROS: 10:08 All systems are negative except as listed. pc Exam: 10:08 General Appearance: alert, the patient is in mild distress. pc 10:08 EENT: normal eye inspection, ears, nose and throat normal, pharynx normal, mucous membranes moist laceration on occiput. 10:08 Neck: The exam reveals no acute abnormalities. ROM is normal and painless. No nuchal rigidity is noted.. 10:08 Respiratory: no respiratory distress, normal breath sounds, chest non-tender. 10:08 CVS: regular pulse rate, regular rhythm, normal S1 and S2, no murmurs, strong peripheral pulses, normal capillary refill. 10:08 Abdomen: soft, non-tender, no organomegaly, normal bowel sounds. 10:08 Back: Pain is noted in the lumbar area. 10:08 Skin: skin color is normal, warm, dry. 10:08 Extremities: The extremities have a grossly normal appearance, are non-tender, without acute ROM abnormalities. 10:08 Neuro: oriented x 3, cranial nerves normal as tested, no motor deficits, no sensory deficits. Vital Signs: 09:44 BP 158 / 72; Pulse 65; Resp 18; Temp 98.0; Pulse Ox 99% on R/A; Weight 102.06 kg / 225 nb2 lbs (R); Height 5 ft. 1 in. (154.94 cm) (R); Pain 8/10; 11:11 BP 105 / 53 (auto/); ead 11:13 Pulse 65; Resp 16; Pulse Ox 95% ; ead 12:07 Pulse 70; Pulse Ox 97% ; ead 12:08 BP 122 / 60 (auto/); ead 12:11 BP 118 / 57 (auto/); ead 12:12 Pulse Ox 96% ; ead 12:41 BP 116 / 56 (auto/); ead 12:45 Pulse 68; Resp 18; Pulse Ox 98% ; ead 13:06 Pulse Ox 96% ; ead 13:07 Resp 16; Pulse Ox 97% on R/A; ead 13:41 BP 153 / 73 (auto/); ead 14:11 BP 118 / 62 (auto/); ead 14:23 BP 118 / 62; Pulse 67; Resp 16; Temp 98.3; Pulse Ox 96% ; Pain 1/10; cmb 09:44 Body Mass Index 42.51 (102.06 kg, 154.94 cm) nb2 Procedures: 13:52 Laceration repair:. pc Laceration: 13:52 Wound Repair of 5cm ( 2.0in ) full thickness laceration to occipital area. Linear pc shaped.. Hemostasis noted.. Distal neuro/vascular/tendon intact. Anesthesia: None with None. Wound prep: Simple cleansing with hibiclenz by provider, Wound irrigation with saline by provider. Skin closed with 6 thin layer [place] using Staple gun. Patient tolerated well. MDM: 09:43 morphine 4 mg Sub-Q once ordered. pc 09:43 Ondansetron ODT Oral Disintegrating Tablet 4 mg PO once ordered. pc 09:45 CT Head Without Contrast Ordered. EDMS 09:45 Spine. Lumbosacral, Complete Ordered. EDMS 10:08 Differential Diagnosis: fall; scalp laceration;; back contusion; chronic back pain. pc Plan: meds, imaging, wound repair. 10:42 Financial registration complete. mm15 11:23 Ibuprofen 600 mg PO once ordered. pc 11:24 CT Spine, Lumbar W/o Contrast Ordered. EDMS 11:33 [facility] Payment Agreement was scanned into [employer] and attached to record. mm15 13:53 Data reviewed: old medical records, vital signs, nurses notes, all radiology studies pc and available results. Test interpretation: X-RAY - interpreted by Radiologist and personally reviewed, LS-Spine ?new L1 compression fracture interpreted by Radiologist and personally reviewed, Head CT; no acute disease, L-Spine CT; new L1 compression fracture, else nad. The patient has been re-examined and re-evaluated. The patient's symptoms have markedly improved after treatment. ED course: She states she never gets any pain relief from opioids and requests only ibuprofen be used. 14:16 Physician consultation: Dr. Ronald Marmolejo was contacted at 14:16, regarding patient's pc condition, and advises the medications/treatment as provided. and agrees with the treatment provided and advises the discharge plans as outlined. Disposition: The historical points, examination findings, and any diagnostic results supporting the provided diagnosis, were discussed with the patient or legal guardian. The need for outpatient follow up with the provider listed on their discharge instructions was discussed. They were encouraged to return to [facility], or the nearest ED, if symptoms worsen/persist, or for any other questions/concerns. 03/16 15:44 PCR was scanned into [employer] and attached to record. gb Administered Medications: 03/15 09:51 Drug: morphine 4 mg [morphine 4 mg/mL intravenous cartridge (1 mL)] Route: Sub-Q; Site: mcp left upper arm; 10:45 Follow up: Response: Confirmed pt not driving.; No Adverse Reaction; Pain is unchanged, ead physician notified 09:51 Drug: Ondansetron ODT 4 mg [ondansetron 4 mg disintegrating tablet (1 tabs)] Route: PO; [facility] 10:45 Follow up: Response: Nausea is resolved; No Adverse Reaction ead 11:30 Drug: Ibuprofen 600 mg [ibuprofen 600 mg tablet (1 tabs)] Route: PO; ead Signatures: Dispatcher [email or web address] EDMS Carlos Hartley MD MD pc Barnhardt, Gloria, Angel Guadalupe mm15 Mercy Ritter RN RN ead Peters, Mary RN [facility] The chart was reviewed and I authenticate all verbal orders and agree with the evaluation and treatment provided.Attachments: 11:33 [facility] Payment Agreement mm15 Chart Complete MTDD
== END 2016-03-15 14:35 | disposition home or self-care (01) ==
LOC: M ED 09:21
DX: S32.010A Wedge compression fracture of first lumbar vertebra, initial encounter for closed fracture (principal); S01.01XA Laceration without foreign body of scalp, initial encounter; W01.0XXA Fall on same level from slipping, tripping and stumbling without subsequent striking against object, initial encounter; Y92.89 Other specified places as the place of occurrence of the external cause; Y93.89 Activity, other specified; Y99.8 Other external cause status; K21.9 Gastro-esophageal reflux disease without esophagitis; M81.0 Age-related osteoporosis without current pathological fracture; I10 Essential (primary) hypertension; M54.5 Low back pain; Z79.899 Other long term (current) drug therapy

== ENCOUNTER → 2016-07-20 | Outpatient (CLI) | payer OTHER ==
--- NOTE | 2016-07-21 02:00 | ECWPNPC ---
PATIENT NAME: MICHELLE PAZ : 1950 GENDER: FEMALE VISIT DATE: 07/20/2016 DISCHARGE DATE: 07/20/16 0945 VISIT LOCKED DATE TIME: PHYSICIAN: SUN HERNANDEZ RESOURCE: SUN HERNANDEZ REASON FOR APPOINTMENT 1. BACK PAIN HISTORY OF PRESENT ILLNESS HISTORY OF PRESENT ILLNESS: PAIN THE PATIENT DESCRIBES THE PAIN... FALL RISK SCREENING: SCREENING :NO FALLS IN THE PAST YEAR TODAY'S VISIT: NOTES: NOTES AREA OF DISCOMFORT REMAINS CENTERD OVER THE LOW BACK. RATES PAIN LEVEL TODAY 02/21. FELL OFF TREADMILL IN MAR - WEDGE COMPRESSION FX L1. PAIN LEVEL HAS SINCE RETURNED TO BASELINE. STILL WITH SOME LEFT LEG BURNING WITH ACTIVITY. CAN PERFORM MOST ACTIVITIES WITHOUT DIFFICULTY. CURRENT MEDICATIONS TAKING CALCIUM CITRATE+D3 315-250 MG-UNIT TABLET 1 TABLET ORALLY TWICE A DAY TAKING HYDROCHLOROTHIAZIDE 25 MG TABLET 1 TABLET ORALLY ONCE A DAY TAKING IBUPROFEN 200 MG TABLET 1 TABLET NEEDED ORALLY DIRECTED TAKING PREVACID 20 MG CAPSULE DELAYED RELEASE 1 CAPSULE ORALLY ONCE A DAY NEEDED TAKING TYLENOL PM EXTRA STRENGTH 500-25 MG TABLET 1 TABLET AT BEDTIME NEEDED ORALLY ONCE A DAY TAKING MOTRIN 800 MG 1 TAB ORALLY 1-2 TABLETS NEEDED MEDICATION LIST REVIEWED AND RECONCILED WITH THE PATIENT PAST MEDICAL HISTORY HTN HIATLE HERNIA LOW BACK PAIN GERD ALLERGIES N.K.D.A. REVIEW OF SYSTEMS CONSTITUTIONAL: ANY CHANGE IN YOUR MEDICAL CONDITION? NO . CHILLS NO . FEVER NO . INFECTION: DO YOU HAVE NEW INFECTIONS? NO . DO YOU HAVE HISTORY OF MRSA? NO . MUSCULOSKELETAL: ANY NEW PATTERNS OF PAIN OR NUMBNESS? NO . GASTROENTEROLOGY: ANY NEW CHANGE IN BOWEL CONTROL? NO . GENITOURINARY: ANY NEW CHANGE IN BLADDER CONTROL? NO . IS THERE A CHANCE YOU COULD BE ? NO . HEMATOLOGY/LYMPH: DO YOU TAKE ANY BLOOD THINNERS? (FOR EXAMPLE- COUMADIN, PLAVIX, AGGRENOX, PLATEL, PRADAXA, OR XARELTO) NO . WHEN WAS YOUR LAST DOSE? DATE: TIME: . NEUROLOGY: HAVE YOU FALLEN IN THE PAST 6 MONTHS? YES . ANY NEW EXTREMITY NUMBNESS OR WEAKNESS? NO . CARDIOLOGY: DO YOU HAVE A PACEMAKER OR DEFIBRILLATOR? NO . CHEST PAIN PATIENT DENIES . RESPIRATORY: HAVE YOU BEEN SICK IN THE PAST WEEK? NO . FEVER NO . FLU LIKE SYMPTOMS? NO . COUGH NO . INTEGUMENTARY: DO YOU HAVE ANY RASHES OR OPEN SORES? PSORIASIS LEFT ELBOW . ALLERGIC/IMMUNO: ARE YOU ALLERGIC TO SHELLFISH OR IV DYE? NO . ANY NEW ALLERGIES? NO . PSYCHIATRIC: DO YOU HAVE THOUGHTS OF HURTING YOURSELF OR SOMEONE ELSE? NO . ARE YOU ABUSED, NEGLECTED, OR IN AN UNSAFE ENVIRONMENT? NO . ENDOCRINOLOGY: ARE YOU DIABETIC? NO . OTHER: DO YOU NEED ANY PRESCRIPTIONS? NO . IF YES, PLEASE LIST: ____ . ANY NEW PROBLEMS WITH YOUR MEDICATIONS? NO . WHEN DID YOU LAST EAT? ____ . WHEN DID YOU LAST DRINK? ____ . WHAT DID YOU LAST DRINK? ____ . NAME OF PERSON DRIVING YOU HOME? ____ . DO YOU HAVE ANY OTHER QUESTIONS OR CONCERNS NO . REVIEWED BY: PROVIDER: SUN BURGER . VITAL SIGNS WT 225 LBS, HT 61 IN, BMI 42.51 INDEX, BP 137/77 MM HG, HR 60 /MIN, RR 18 /MIN, TEMP 97.3 F, OXYGEN SAT % 96%, REVIEWED BY: AUDIE (DONE AT 0847). EXAMINATION GENERAL EXAMINATION: PSYCHALERT , ORIENTED X 3 , APPROPRIATE MOOD AND AFFECT , GOOD HISTORIAN. LUNGS:CLEAR TO AUSCULTATION BILATERALLY. NO WHEEZES, RALES OR RHONCHI. HEART:HEART RATE REGULAR, NORMAL S1S2, NO MURMURS, CLICK OR RUBS. MUSCULOSKELETAL:MUSCLE STRENGTH TESTING 5/5 BILATERAL LOWER EXTREMITIES. MILD TENDERNESS OVER LUMBAR SPINOUS PROCESSES. FEW TRIGGERPOINTS AND TIGHT FIBROUS BANDS OVER SACRUM BILATERALLY. RISES EASILY TO STANDING POSITION. POSTURE UPRIGHT. GAIT NOANTALGIC. . NEUROLOGIC EXAM:HYPERSENSTATIVE TO LIGHT TOUCH OVER ANTERIOR LEFT THIGH.. ASSESSMENTS LUMBAR DISC DISPLACEMENT WITHOUT MYELOPATHY - M51.26 (PRIMARY) LOW BACK PAIN - M54.5 OTHER CHRONIC PAIN - G89.29 TREATMENT LUMBAR DISC DISPLACEMENT WITHOUT MYELOPATHY NOTES: CONTINUE WALKING TOLERATED. DO EXERCISES AND STRETCHES. PROCEDURE CODES FA211 ESTABILISHED PATIENT [facility] FACILITY CHARGE DISPOSITION & COMMUNICATION FOLLOW UP 10 MONTH (REASON: BACK PAIN) ELECTRONICALLY SIGNED BY THOMAS HUTTON ON 07/20/2016 AT 11:49 AM EDT DISCLAIMER : THIS IS A VISIT SUMMARY EXTRACTED FROM THE [employer] CHART. IT IS NOT A COPY OF THE [employer] PROGRESS NOTE. MTDD
== END ==
LOC: M PAIN 08:30
PROVIDERS: ATTEND Nurse Practitioner Family
DX: M51.26 Other intervertebral disc displacement, lumbar region (principal); G89.29 Other chronic pain; Z79.899 Other long term (current) drug therapy; I10 Essential (primary) hypertension; K21.9 Gastro-esophageal reflux disease without esophagitis

== ENCOUNTER → 2017-05-21 | Outpatient (CLI) | payer MEDICARE, OTHER | LOC: M PAIN 08:45 | DX: M51.26 Other intervertebral disc displacement, lumbar region (principal); G89.29 Other chronic pain; I10 Essential (primary) hypertension; K44.9 Diaphragmatic hernia without obstruction or gangrene; K21.9 Gastro-esophageal reflux disease without esophagitis; Z79.899 Other long term (current) drug therapy; Z88.2 Allergy status to sulfonamides | CPT/HCPCS: G0463 ==

== ENCOUNTER → 2018-02-25 | Outpatient (CLI) | payer MEDICARE, OTHER ==
[2018-02-25 17:41] LABS: BLOOD UREA NITROGEN 11 MG/DL (7-18); CREATININE FOR GFR 0.85 MG/DL (0.55-1.30); GLOMERULAR FILTRATION RATE > 60.0 (>45)
== END ==
LOC: M SMT 14:18
PROVIDERS: ATTEND Family Medicine
DX: Z01.812 Encounter for preprocedural laboratory examination (principal)

== ENCOUNTER → 2018-05-19 | Outpatient (REF) | payer MEDICARE, OTHER ==
[2018-05-19 09:36] LABS: CLOSTRIDIUM DIFFICILE PCR NEGATIVE (NEGATIVE)
== END ==
LOC: M LAB REF 08:44
PROVIDERS: ATTEND Family Medicine
DX: R19.7 Diarrhea, unspecified (principal)

== ENCOUNTER → 2018-05-28 | Outpatient (CLI) | payer MEDICARE, OTHER ==
--- NOTE | 2018-05-30 01:05 | ECWPNPC ---
PATIENT NAME: MICHELLE PAZ : 1950 GENDER: FEMALE VISIT DATE: 05/28/2018 DISCHARGE DATE: 05/28/18 1027 VISIT LOCKED DATE TIME: PHYSICIAN: MIQUEL MONTOYA RESOURCE: MIQUEL MONTOYA REASON FOR APPOINTMENT 1. BACK PAIN, SW PT HISTORY OF PRESENT ILLNESS HISTORY OF PRESENT ILLNESS: PAIN THE PATIENT DESCRIBES THE PAINDURING THE LAST MONTH SEVERITY - PAIN SCORE OF1/10 67 YR OLD FEMALE HERE FOR ANNUAL CHECK UP. VAS 1/10, DOING WELL AND LOWE NOT USE ANY PAIN MEDICATION. FALL RISK SCREENING: SCREENING :NO FALLS REPORTED IN THE LAST YEAR CURRENT MEDICATIONS TAKING CALCIUM CITRATE+D3 315-250 MG-UNIT TABLET 1 TABLET ORALLY TWICE A DAY TAKING HYDROCHLOROTHIAZIDE 25 MG TABLET 1 TABLET ORALLY ONCE A DAY TAKING IBUPROFEN 200 MG TABLET 1 TABLET NEEDED ORALLY DIRECTED TAKING PREVACID 20 MG CAPSULE DELAYED RELEASE 1 CAPSULE ORALLY ONCE A DAY NEEDED TAKING TYLENOL PM EXTRA STRENGTH 500-25 MG TABLET 1 TABLET AT BEDTIME NEEDED ORALLY ONCE A DAY TAKING MOTRIN 800 MG 1 TAB ORALLY 1-2 TABLETS EVERY 8 HOURS NEEDED TAKING FLORAJEN ACIDOPHILUS - CAPSULE 1 CAP ORALLY DAILY MEDICATION LIST REVIEWED AND RECONCILED WITH THE PATIENT PAST MEDICAL HISTORY HTN HIATAL HERNIA LOW BACK PAIN GERD ALLERGIES SULFA (FOR ALLERGY USE ONLY): NAUSEA/VOMITING - SIDE EFFECTS SURGICAL HISTORY TONSILECTOMY 1965 CHOLECYSTECTOMY 2000 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 SIBLING OF CANCER. SOCIAL HISTORY GENERAL: TOBACCO USE ARE YOU A:NONSMOKER LATEX QUESTIONNAIRE LATEX ALLERGY : HAVE YOU EVER DEVELOPED ANY TYPE OF REACTION AFTER HANDLING LATEX PRODUCTS SUCH RUBBER GLOVES, CONDOMS, DIAPHRAGMS, BALLOONS, SOCKS, OR UNDERWEAR?NO LATEX ALLERGY : HAVE YOU EVER DEVELOPED ANY TYPE OF REACTION DURING OR AFTER DENTAL APPOINTMENT, VAGINAL/RECTAL EXAMINATION, SURGICAL PROCEDURE, OR ANY OTHER EXPOSURE?NO LATEX RISK : HAVE YOU EVER HAD ANY DIFFICULTY BREATHING OR HIVES AFTER EATING OR HANDLING ANY FRUITS, OR VEGETABLES; SUCH KIWI, BANANAS, STONE FRUITS, OR CHESTNUTSNO LATEX RISK : DO YOU HAVE A PREVIOUS PERSONAL HISTORY OF MORE THAN NINE SURGERIES, SPINA BIFIDA, OR REPEATED CATHERTIZATIONS? NO LATEX RISK : ARE YOU FREQUENTLY EXPOSED TO LATEX PRODUCTS IN YOUR OCCUPATION?NO DATE ASKED : 05/28/2018 ALCOHOL SCREENING POINTS: 1, INTERPRETATION: NEGATIVE. RECREATIONAL DRUG USE DRUG USE?NO RESTORATIONIST NO ZOROASTRIANISM BELIEFS THAT WOULD IMPACT HEALTH CARE. LANGUAGE LANGUAGES SPOKEN:BRAZILIAN EDUCATION LEVEL OF EDUCATION:FINISHED COLLEGE MASTERS LEARNING BARRIERS / SPECIAL NEEDS BARRIERS TO LEARNING?NO HEARING IMPAIRED?NO VISION IMPAIRED?YES :CORRECTIVE LENSES COGNITIVELY IMPAIRED?NO READINESS TO LEARN?YES LEARNING PREFERENCES?YES :TAPES/VIDEOS, BOOKLETS, DEMONSTRATION/VERBAL INSTRUCTION LEARNING CAPABILITIES PRESENT?YES EMOTIONAL BARRIERS?NO SPECIAL DEVICES?NO SOLUTION DIRECTOR NEEDED?NO DOMESTIC VIOLENCE DO YOU FEEL SAFE IN YOUR ENVIRONMENT?YES PAIN CLINIC PFS, CLERGY, PUBLIC HEALTH REFERRALS HAS THE PATIENT BEEN EDUCATED REGARDING HIS/HER PLAN OF CARE?YES HAS THE PATIENT BEEN EDUCATED REGARDING PAIN, THE RISK FOR PAIN, THE IMPORTANCE OF EFFECTIVE PAIN MANAGEMENT, AND THE PAIN ASSESSMENT PROCESS?YES ADVANCE DIRECTIVE ADVANCE DIRECTIVE DISCUSSED WITH PATIENT:YES 05/28/18 STATES SHE HAS HCP: , AVA PAZ [phone] POA: AVA LUGO WILL REVIEWED 05/21/17 0910 BV. HOSPITALIZATION/MAJOR DIAGNOSTIC PROCEDURE SEE ABOVE REVIEW OF SYSTEMS REVIEWED BY: PROVIDER: CH . CONSTITUTIONAL: ANY CHANGE IN YOUR MEDICAL CONDITION? YES, DIVERTICULITIS, AND GI BUG . CHILLS NO . FEVER NO . INFECTION: DO YOU HAVE NEW INFECTIONS? YES, DIVERTICULITIS . DO YOU HAVE HISTORY OF MRSA? NO . MUSCULOSKELETAL: ANY NEW PATTERNS OF PAIN OR NUMBNESS? NO . GASTROENTEROLOGY: ANY NEW CHANGE IN BOWEL CONTROL? NO . GENITOURINARY: ANY NEW CHANGE IN BLADDER CONTROL? NO . IS THERE A CHANCE YOU COULD BE ? NO . HEMATOLOGY/LYMPH: DO YOU TAKE ANY BLOOD THINNERS? (FOR EXAMPLE- COUMADIN, PLAVIX, AGGRENOX, PLATEL, PRADAXA, OR XARELTO) NO . WHEN WAS YOUR LAST DOSE? DATE: TIME: . NEUROLOGY: HAVE YOU FALLEN IN THE PAST 12 MONTHS? NO . ANY NEW EXTREMITY NUMBNESS OR WEAKNESS? NO . CARDIOLOGY: DO YOU HAVE A PACEMAKER OR DEFIBRILLATOR? NO . RESPIRATORY: HAVE YOU BEEN SICK IN THE PAST WEEK? YES . FEVER YES . FLU LIKE SYMPTOMS? NO . COUGH YES, PRODUCTIVE, RAISING CLEAR MUCUS . INTEGUMENTARY: DO YOU HAVE ANY RASHES OR OPEN SORES? NO . ALLERGIC/IMMUNO: ARE YOU ALLERGIC TO IV DYE? NO . ANY NEW ALLERGIES? NO . PSYCHIATRIC: DO YOU HAVE THOUGHTS OF HURTING YOURSELF OR SOMEONE ELSE? NO . ARE YOU ABUSED, NEGLECTED, OR IN AN UNSAFE ENVIRONMENT? NO . ENDOCRINOLOGY: ARE YOU DIABETIC? NO . OTHER: DO YOU NEED ANY PRESCRIPTIONS? NO . IF YES, PLEASE LIST: ____ . ANY NEW PROBLEMS WITH YOUR MEDICATIONS? NO . WHEN DID YOU LAST EAT? ____ . WHEN DID YOU LAST DRINK? ____ . WHAT DID YOU LAST DRINK? ____ . NAME OF PERSON DRIVING YOU HOME? ____ . DO YOU HAVE ANY OTHER QUESTIONS OR CONCERNS YES, PLANS ON GETTING THE NEW SHINGLES VACCINE WITHIN THE NEXT COUPLE OF WEEKS . VITAL SIGNS WT 227.0 LBS, HT 61 IN, BMI 42.89 INDEX, BP 131/68 MM HG, HR 58 /MIN, RR 18 /MIN, TEMP 98.0 F, OXYGEN SAT % 95%, SAFE IN ENV? (Y/N) Y, NA INITIALS AW 0950, REVIEWED BY: AD. EXAMINATION GENERAL EXAMINATION: GENERAL APPEARANCE:NO ACUTE DISTRESS, WELL NOURISHED AND HYDRATED. PSYCHAPPROPRIATE MOOD AND AFFECT . LUNGS:CLEAR TO AUSCULTATION BILATERALLY, NO WHEEZES, RHONCHI, RALES. HEART:HEART:, 1/6, IRREGULAR RHYTHM. ASSESSMENTS LUMBAR DISC DISPLACEMENT WITHOUT MYELOPATHY - M51.26 (PRIMARY) TREATMENT LUMBAR DISC DISPLACEMENT WITHOUT MYELOPATHY CLINICAL NOTES: CONTINUE WITH CURRENT, PATIENT WAS ADVISED TO START A WALKING PROGRAM TO STRENGTHEN LUMBAR PARASPINAL MUSCLES AND IMPROVE MOBILITY. ADVISED TO WALK 10 MINUTES EVERY OTHER DAY ON A FLAT SURFACE. EMPHASIZED THE IMPORTANCE OF DOING THIS CONSISTANTLY AND NOT SPORATICALLY TO AVOID INJURY. STRONG ADVISED NOT TO DO MORE THAN 10 MINUTES EVERY OTHER DAY FOR THE FIRST 4 WEEKS. OTHERS CLINICAL NOTES: F/U WITH PCP REGARDING GRADE 1 HEART MURMUR. PROCEDURE CODES FA211 ESTABILISHED PATIENT [facility] CHARGE DISPOSITION & COMMUNICATION FOLLOW UP 1 YEAR ELECTRONICALLY SIGNED BY TAO ELIZABETH ON 05/29/2018 AT 08:21 AM EDT DISCLAIMER : THIS IS A VISIT SUMMARY EXTRACTED FROM THE [email or web address] CHART. IT IS NOT A COPY OF THE [email or web address] PROGRESS NOTE. CHARMAINE
== END ==
LOC: M PAIN 09:45
PROVIDERS: ATTEND Nurse Practitioner Family
DX: M51.26 Other intervertebral disc displacement, lumbar region (principal); I10 Essential (primary) hypertension; K21.9 Gastro-esophageal reflux disease without esophagitis; Z88.2 Allergy status to sulfonamides; E66.01 Morbid (severe) obesity due to excess calories; Z68.41 Body mass index [BMI] 40.0-44.9, adult; Z79.899 Other long term (current) drug therapy

== ENCOUNTER → 2019-05-29 | Outpatient (CLI) | payer MEDICARE, OTHER ==
--- NOTE | 2019-06-02 08:28 | ECWPNPC ---
PATIENT NAME: MICHELLE PAZ : 1950 GENDER: FEMALE VISIT DATE: 05/29/2019 DISCHARGE DATE: 05/29/19 1151 VISIT LOCKED DATE TIME: PHYSICIAN: DEEPALI MCKEON RESOURCE: DEEPALI MCKEON REASON FOR APPOINTMENT 1. BACK PAIN- -[email or web address] OR [phone] HISTORY OF PRESENT ILLNESS HISTORY OF PRESENT ILLNESS: PATIENT AGREES TO TELEMED VISIT TODAY. THIS IS HER YEARLY FOLLOW-UP FOR CHRONIC LOW BACK PAIN WITH LEFT LEG RADICULAR SYMPTOMS. CONTINUES TO DO WELL. RATING PAIN LEVEL A 1/10 VAS. PAIN IS AGGRAVATED BY PROLONGED STANDING. DENIES DISRUPTION IN HER LIFESTYLES DUE TO PAIN. HAS RESPONDED WELL TO INJECTION THERAPY AND IN THE PAST. SHE WOULD LIKE TO BE KEPT ACTIVE AT THE PAIN CENTER WITH VISITS YEARLY. SHE IS AWARE THAT SHE CAN CALL AT ANY TIME SHOULD HER CONDITION CHANGE TO BE CONSIDERED FOR INJECTION THERAPY. PAIN THE PATIENT DESCRIBES THE PAIN... FALL RISK SCREENING: SCREENING :NO FALLS REPORTED IN THE LAST YEAR CURRENT MEDICATIONS TAKING CALCIUM CITRATE+D3 315-250 MG-UNIT TABLET 1 TABLET ORALLY TWICE A DAY TAKING HYDROCHLOROTHIAZIDE 25 MG TABLET 1 TABLET ORALLY ONCE A DAY TAKING IBUPROFEN 200 MG TABLET 1 TABLET NEEDED ORALLY DIRECTED TAKING PREVACID 20 MG CAPSULE DELAYED RELEASE 1 CAPSULE ORALLY ONCE A DAY NEEDED TAKING TYLENOL PM EXTRA STRENGTH 500-25 MG TABLET 1 TABLET AT BEDTIME NEEDED ORALLY ONCE A DAY TAKING MOTRIN 800 MG 1 TAB ORALLY 1-2 TABLETS EVERY 8 HOURS NEEDED TAKING FLORAJEN ACIDOPHILUS - CAPSULE 1 CAP ORALLY DAILY MEDICATION LIST REVIEWED AND RECONCILED WITH THE PATIENT PAST MEDICAL HISTORY HTN HIATAL HERNIA LOW BACK PAIN GERD DIVERTICULITIS ALLERGIES SULFA (FOR ALLERGY USE ONLY): NAUSEA/VOMITING - SIDE EFFECTS SURGICAL HISTORY TONSILECTOMY 1966 CHOLECYSTECTOMY 2000 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 SIBLING OF CANCER. SOCIAL HISTORY GENERAL: TOBACCO USE ARE YOU A:NONSMOKER PAIN CLINIC PFS, CLERGY, PUBLIC HEALTH REFERRALS HAS THE PATIENT BEEN EDUCATED REGARDING HIS/HER PLAN OF CARE?YES HAS THE PATIENT BEEN EDUCATED REGARDING PAIN, THE RISK FOR PAIN, THE IMPORTANCE OF EFFECTIVE PAIN MANAGEMENT, AND THE PAIN ASSESSMENT PROCESS?YES LATEX QUESTIONNAIRE LATEX ALLERGY : HAVE YOU EVER DEVELOPED ANY TYPE OF REACTION AFTER HANDLING LATEX PRODUCTS SUCH RUBBER GLOVES, CONDOMS, DIAPHRAGMS, BALLOONS, SOCKS, OR UNDERWEAR?NO LATEX ALLERGY : HAVE YOU EVER DEVELOPED ANY TYPE OF REACTION DURING OR AFTER DENTAL APPOINTMENT, VAGINAL/RECTAL EXAMINATION, SURGICAL PROCEDURE, OR ANY OTHER EXPOSURE?NO LATEX RISK : HAVE YOU EVER HAD ANY DIFFICULTY BREATHING OR HIVES AFTER EATING OR HANDLING ANY FRUITS, OR VEGETABLES; SUCH KIWI, BANANAS, STONE FRUITS, OR CHESTNUTSNO LATEX RISK : DO YOU HAVE A PREVIOUS PERSONAL HISTORY OF MORE THAN NINE SURGERIES, SPINA BIFIDA, OR REPEATED CATHERIZATIONS? NO LATEX RISK : ARE YOU FREQUENTLY EXPOSED TO LATEX PRODUCTS IN YOUR OCCUPATION?NO DATE ASKED : 05/29/2019 ADVANCE DIRECTIVE ADVANCE DIRECTIVE DISCUSSED WITH PATIENT:YES STATES SHE HAS HCP: , AVA PAZ [phone] POA: AVA LIVING WILL EDUCATION LEVEL OF EDUCATION:FINISHED COLLEGE MASTERS ANABAPTIST NO HOAHAOISM BELIEFS THAT WOULD IMPACT HEALTH CARE. LANGUAGE LANGUAGES SPOKEN:OCCITAN DOMESTIC VIOLENCE DO YOU FEEL SAFE IN YOUR ENVIRONMENT?YES NEW PATIENT PAIN DIARY TODAY'S VISITNOTES 05/29/2019 PATIENT DESCRIBES PAIN :ACHING, IT COMES AND GOES, SHOOTING FROM 0-10, WHAT LEVEL IS YOUR PAIN TODAY?2 ALCOHOL SCREENING POINTS: 1, INTERPRETATION: NEGATIVE. RECREATIONAL DRUG USE DRUG USE?NO LEARNING BARRIERS / SPECIAL NEEDS BARRIERS TO LEARNING?NO HEARING IMPAIRED?NO VISION IMPAIRED?YES COGNITIVELY IMPAIRED?NO :CORRECTIVE LENSES READINESS TO LEARN?YES LEARNING PREFERENCES?YES :TAPES/VIDEOS, BOOKLETS, DEMONSTRATION/VERBAL INSTRUCTION LEARNING CAPABILITIES PRESENT?YES EMOTIONAL BARRIERS?NO SPECIAL DEVICES?NO FAMILY SERVICE CASEWORKER NEEDED?NO HOSPITALIZATION/MAJOR DIAGNOSTIC PROCEDURE SEE ABOVE REVIEW OF SYSTEMS REVIEWED BY: PROVIDER: DEEPALI BURGER . CONSTITUTIONAL: ANY CHANGE IN YOUR MEDICAL CONDITION? NO . CHILLS NO . FEVER NO . INFECTION: DO YOU HAVE NEW INFECTIONS? NO . DO YOU HAVE HISTORY OF MRSA? NO . MUSCULOSKELETAL: ANY NEW PATTERNS OF PAIN OR NUMBNESS? YES, STATES MORE SHOOTING PAIN INTO THE LEGS THE PAST FEW WEEKS . GASTROENTEROLOGY: ANY NEW CHANGE IN BOWEL CONTROL? NO . GENITOURINARY: ANY NEW CHANGE IN BLADDER CONTROL? NO . IS THERE A CHANCE YOU COULD BE ? NO . HEMATOLOGY/LYMPH: DO YOU TAKE ANY BLOOD THINNERS? (FOR EXAMPLE- COUMADIN, PLAVIX, AGGRENOX, PLATEL, PRADAXA, OR XARELTO) NO . WHEN WAS YOUR LAST DOSE? DATE: TIME: . NEUROLOGY: HAVE YOU FALLEN IN THE PAST 12 MONTHS? NO . ANY NEW EXTREMITY NUMBNESS OR WEAKNESS? NO . CARDIOLOGY: DO YOU HAVE A PACEMAKER OR DEFIBRILLATOR? NO . RESPIRATORY: HAVE YOU BEEN SICK IN THE PAST WEEK? NO . FEVER NO . FLU LIKE SYMPTOMS? NO . COUGH NO . INTEGUMENTARY: DO YOU HAVE ANY RASHES OR OPEN SORES? NO . ALLERGIC/IMMUNO: ARE YOU ALLERGIC TO IV DYE? NO . ANY NEW ALLERGIES? NO . PSYCHIATRIC: DO YOU HAVE THOUGHTS OF HURTING YOURSELF OR SOMEONE ELSE? NO . ARE YOU ABUSED, NEGLECTED, OR IN AN UNSAFE ENVIRONMENT? NO . ENDOCRINOLOGY: ARE YOU DIABETIC? NO . OTHER: DO YOU NEED ANY PRESCRIPTIONS? NO . IF YES, PLEASE LIST: ____ . ANY NEW PROBLEMS WITH YOUR MEDICATIONS? NO . WHEN DID YOU LAST EAT? ____ . WHEN DID YOU LAST DRINK? ____ . WHAT DID YOU LAST DRINK? ____ . NAME OF PERSON DRIVING YOU HOME? ____ . DO YOU HAVE ANY OTHER QUESTIONS OR CONCERNS NO . EXAMINATION GENERAL EXAMINATION: GENERALNO ACUTE DISTRESS, WELL NOURISHED AND HYDRATED. PSYCHAPPROPRIATE MOOD AND AFFECT . FACE:UNREMARKABLE. ASSESSMENTS LUMBAR DISC DISPLACEMENT WITHOUT MYELOPATHY - M51.26 (PRIMARY) TREATMENT LUMBAR DISC DISPLACEMENT WITHOUT MYELOPATHY NOTES: CONTINUE HOME STRETCHING EXERCISES AND CONSERVATIVE CARE FOR CHRONIC LOW BACK PAIN. ENCOURAGED TO CALL US SHOULD HER CONDITION CHANGE FOR FOLLOW-UP VISIT WITH ME. TOTAL TIME SPENT DURING TELEMED VISIT WAS APPROXIMATELY 11 MINUTES. OTHERS NOTES: NO VITALS OBTAINED DUE TO VIRTUAL VISIT. . DISPOSITION & COMMUNICATION FOLLOW UP 1 YEAR (REASON: CHRONIC LOW BACK PAIN) ELECTRONICALLY SIGNED BY TAO SMITH ON 05/29/2019 AT 11:47 AM EDT DISCLAIMER : THIS IS A VISIT SUMMARY EXTRACTED FROM THE [employer] CHART. IT IS NOT A COPY OF THE [employer] PROGRESS NOTE. CHARMAINE
== END ==
LOC: M PAIN 10:15
PROVIDERS: ATTEND Nurse Practitioner Family
DX: M51.26 Other intervertebral disc displacement, lumbar region (principal); I10 Essential (primary) hypertension; Z79.899 Other long term (current) drug therapy; Z88.2 Allergy status to sulfonamides